=== PATIENT | male | born 1940 | race Caucasian/White ===

== ENCOUNTER → 2017-04-05 | Outpatient (CLI) | payer OTHER ==
[2017-04-05 10:35] LABS: BUN/CREATININE RATIO 25 (0-10)
== END ==
LOC: LAB 09:42
PROVIDERS: Internal Medicine Cardiovascular Disease
DX: I25.10 Atherosclerotic heart disease of native coronary artery without angina pectoris (principal); E78.5 Hyperlipidemia, unspecified; R60.9 Edema, unspecified
CPT/HCPCS: 36415; 80048

== ENCOUNTER → 2017-04-07 | Outpatient (CLI) | payer OTHER | LOC: CT 07:10 | DX: I73.9 Peripheral vascular disease, unspecified (principal); I70.8 Atherosclerosis of other arteries; I77.89 Other specified disorders of arteries and arterioles | CPT/HCPCS: 75635; J7050; Q9963 ==

== ENCOUNTER → 2017-04-20 | Outpatient (CLI) | payer OTHER | LOC: HEART 5 07:22 | DX: I25.10 Atherosclerotic heart disease of native coronary artery without angina pectoris (principal) | CPT/HCPCS: 78452; 93306; A9502; J2785 ==

== ENCOUNTER → 2020-12-28 | Outpatient (CLI) | payer OTHER ==
[~2020-12-28] MED LIST: ALDACTAZIDE 251 EACH PO; AMLODIPINE BESYL5 MG PO; ASPIRIN CHEWABL81 MG PO; BRILINTA 90 MG90 MG PO; BUSPAR 5MG TABLE5 MG PO; BUSPIRONE HCL5 MG PO; CARAFATE1 GM PO; CATAPRES0.3 MG PO; CLONIDINE HCL0.3 MG PO; COZAAR100 MG PO; COZAAR50 MG PO; CYANOCOBAL1000 MCG/1 INJ; ECOTRIN81 MG PO; FENOFIBRATE160 MG PO; FEOSOL325 MG PO; FERROUS SULFAT325 MG PO; GLUCOPHAGE1000 MG PO; GLUCOTROL 10 MG10 MG PO; GLUCOTROL5 MG PO; HUMULIN 70100 UNIT/1 SQ; HYDRALAZINE HC100 MG PO; HYDRALAZINE HCL50 MG PO; IMDUR ER TAB 6060 MG PO; LEVEMIR100 UNIT/1 SC; LEVEMIR100 UNIT/1 SQ; LIPITOR TAB 2020 MG PO; LIPITOR80 MG PO; LOPRESSOR100 MG PO; LOPRESSOR50 MG PO; METFORMIN HCL1000 MG PO; NORVASC10 MG PO; NOVOLOG MI100 UNIT/2 SC; OMEPRAZOLE20 MG PO; PLETAL 100 MG100 MG PO; TIZANIDINE HCL4 MG PO; TRICOR145 MG PO; VITAMIN D21250 MCG PO
== END ==
LOC: HEART 5 07:30 → ECHO 07:35 → HEART 5 07:35
DX: I25.10 Atherosclerotic heart disease of native coronary artery without angina pectoris (principal); I51.7 Cardiomegaly; I34.0 Nonrheumatic mitral (valve) insufficiency; I37.1 Nonrheumatic pulmonary valve insufficiency; I35.8 Other nonrheumatic aortic valve disorders
CPT/HCPCS: ECHO; 78452; 93306; A9502; J2785

== ENCOUNTER → 2021-02-22 | Outpatient (CLI) | payer OTHER ==
[2021-02-22 12:38] LABS: RED BLOOD COUNT 3.65 M/UL (4.20-5.50); WHITE BLOOD COUNT 8.5 K/UL (4.5-11.0)
[2021-02-22 12:57] LABS: BUN/CREATININE RATIO 31 (0-10)
== END ==
LOC: OPSV2 02-17 10:00
PROVIDERS: Surgery
DX: Z01.812 Encounter for preprocedural laboratory examination (principal); Z20.822 Contact with and (suspected) exposure to COVID-19
CPT/HCPCS: 36415; 71046; 80053; 81001; 85025; 85610; 85730; 86850; 86900; 86901; 93005; U0002

== ENCOUNTER → 2021-02-23 | Day surgery (SDC) | payer OTHER | END | disposition home or self-care (01) | LOC: OR 06:05 → EDSTATUS 07:30 | PROVIDERS: Surgery | PROC: B41DZZZ Fluoroscopy of Aorta and Bilateral Lower Extremity Arteries (ICD-10-PCS; principal; 2021-02-23 07:30) | DX: E11.51 Type 2 diabetes mellitus with diabetic peripheral angiopathy without gangrene (principal); I70.213 Atherosclerosis of native arteries of extremities with intermittent claudication, bilateral legs; I70.92 Chronic total occlusion of artery of the extremities; I25.10 Atherosclerotic heart disease of native coronary artery without angina pectoris; I10 Essential (primary) hypertension; E78.5 Hyperlipidemia, unspecified; I25.2 Old myocardial infarction; E66.9 Obesity, unspecified; Z68.30 Body mass index [BMI] 30.0-30.9, adult; Z79.82 Long term (current) use of aspirin; Z79.4 Long term (current) use of insulin; Z79.899 Other long term (current) drug therapy | CPT/HCPCS: 75625; 82962; C1769; C1887; C1894; J0690; J1644; J2001; J2405; J2704; J2710; J2720; J3010; J7040; J7050; J7120; Q9962 ==

== ENCOUNTER 2021-08-19 06:57 | Outpatient (CLI) | payer OTHER ==
[~2021-08-19] VITALS: Ht 182.9 cm; Wt 105.2 kg
[~2021-08-19 06:57] MED LIST changes: +CILOSTAZOL50 MG PO
[2021-08-19 08:32] LABS: BUN/CREATININE RATIO 28 (0-10)
[2021-08-19] MEDS ORDERED: NITROSTAT 0.40.4 MG SL (08:41)
[2021-08-19] MEDS ORDERED: OCUVITE EYE PL1 EACH PO (08:44)
[2021-08-19 09:03] LABS: RED BLOOD COUNT 3.6 M/UL (4.20-5.50); WHITE BLOOD COUNT 6.6 K/UL (4.5-11.0)
[2021-08-19] MEDS ORDERED: BRILINTA90 MG PO (12:46)
[2021-08-19] MEDS ORDERED: OMEPRAZOLE40 MG PO (15:35)
== END 2021-08-19 20:06 | disposition home or self-care (01) ==
LOC: CATH 06:57 → M/S 14:07 → CATH 20:06
PROVIDERS: Internal Medicine Cardiovascular Disease
DX: E11.51 Type 2 diabetes mellitus with diabetic peripheral angiopathy without gangrene (principal); I70.211 Atherosclerosis of native arteries of extremities with intermittent claudication, right leg; I70.92 Chronic total occlusion of artery of the extremities; I70.8 Atherosclerosis of other arteries; I74.5 Embolism and thrombosis of iliac artery; I10 Essential (primary) hypertension; I25.10 Atherosclerotic heart disease of native coronary artery without angina pectoris; I65.23 Occlusion and stenosis of bilateral carotid arteries; E78.5 Hyperlipidemia, unspecified; N28.89 Other specified disorders of kidney and ureter; I25.2 Old myocardial infarction; Z79.4 Long term (current) use of insulin; Z79.899 Other long term (current) drug therapy; Z20.822 Contact with and (suspected) exposure to COVID-19; Z98.61 Coronary angioplasty status; Z87.891 Personal history of nicotine dependence
CPT/HCPCS: 75630; 80048; 82962; 85025; 85347; 85610; 99152; 99153; C1725; C1769; C1876; C1894; J0360; J1644; J2250; J3010; J7030; Q9965

== ENCOUNTER 2021-10-18 06:22 | Outpatient (CLI) | payer OTHER ==
[~2021-10-18] VITALS: Ht 182.9 cm; Wt 104.8 kg
[~2021-10-18 06:22] MED LIST changes: +BRILINTA90 MG PO; +NITROSTAT 0.40.4 MG SL; +OCUVITE EYE PL1 EACH PO; +OMEPRAZOLE40 MG PO
[2021-10-18 06:57] LABS: HEMOGLOBIN 10.4 gm/dl (14.0-17.5); RED BLOOD COUNT 3.7 M/UL (4.20-5.50); WHITE BLOOD COUNT 7.4 K/UL (4.5-11.0)
[2021-10-18 07:18] LABS: BUN/CREATININE RATIO 36 (0-10)
[2021-10-18] MEDS ORDERED: ALDACTONE 25MG25 MG PO (07:29)
[2021-10-19 02:45] LABS: BUN/CREATININE RATIO 24 (0-10)
== END 2021-10-19 13:00 | disposition home or self-care (01) ==
LOC: CATH 06:22 → PROG CARE 12:31 → CATH 10-19 13:00
PROVIDERS: Internal Medicine Cardiovascular Disease
DX: I74.5 Embolism and thrombosis of iliac artery (principal); I25.10 Atherosclerotic heart disease of native coronary artery without angina pectoris; Z98.61 Coronary angioplasty status; E78.5 Hyperlipidemia, unspecified; I25.2 Old myocardial infarction; E11.9 Type 2 diabetes mellitus without complications; I10 Essential (primary) hypertension
CPT/HCPCS: 36415; 71045; 75630; 80048; 82962; 85025; 85347; 85610; 99152; 99153; C1725; C1769; C1894; J1644; J2250; J3010; J7030; J7040; Q9965